=== PATIENT | male | born 1955 | race Caucasian/White ===

== ENCOUNTER 2018-07-02 09:38 | Emergency (ER) | payer OTHER ==
[2018-07-02 09:42] VITALS: BMI 33.5
[2018-07-02 09:43] VITALS: BP 127/79; PULSE 68; RESP 16; TEMP 98.2; O2SAT 96
[2018-07-02] MEDS ORDERED: Naproxen 500 MG TAB PO STA (10:12)
--- NOTE | 2018-07-02 10:18 | ED PDOC ---
Lower Extremity Pain/Injury Time Seen by Provider: 07/02/18 10:00 Chief Complaint (Nursing): Lower Extremity Problem/Injury Chief Complaint (Provider): foot pain History Per: Patient History/Exam Limitations: no limitations Onset/Duration Of Symptoms: Days Current Symptoms Are (Timing): Still Present Severity: Mild Pain Scale Rating Of: 5 Additional History Per: Patient Additional Complaint(s): 63 y/o male with no significant medical hx presents with right heel pain for a several weeks. He states pain is worse when applying weight to the heel and in the am upon rising. Pain improves as the day progresses. Additionally pt states he has been having pain to left lateral aspect of the left foot for one week. Pt states its most likely because he has been applying increase weight to left foot. He denies self medicating for pain. - Ankle/Foot Currently Unable To: Bear Weight (partial weight bearing to left foot ) - Risk Factors DVT Risk Factors: Pos: None Past Medical History Reviewed: Historical Data, Nursing Documentation, Vital Signs Vital Signs: Last Vital Signs Temp 98.2 F 07/02/18 09:42 Pulse 68 07/02/18 09:42 Resp 16 07/02/18 09:42 BP 127/79 07/02/18 09:42 Pulse Ox 96 07/02/18 09:42 - Medical History PMH: No Chronic Diseases - Surgical History Surgical History: No Surg Hx - Family History Family History: States: Unknown Family Hx - Social History Alcohol: None Drugs: Denies - Home Medications Home Medications: Ambulatory Orders Medication Instructions Recorded DiphenhydrAMINE [Benadryl] 25 mg PO Q4H PRN #30 cap 10/12/14 Famotidine [Pepcid] 20 mg PO DAILY #4 tab 10/12/14 Prednisone 50 mg PO DAILY #4 tab 10/12/14 Naproxen [Naprosyn Tab] 500 mg PO Q12H PRN #30 tab 07/02/18 - Allergies Allergies/Adverse Reactions: Allergies Allergy/AdvReac Type Severity Reaction Status Date / Time Penicillins AdvReac DIZZINESS Verified 07/02/18 10:21 Wells Criteria for PE - Wells Criteria for Pulmonary Embolism Clinical Signs and Symptoms of DVT: No P.E is #1 Diagnosis, or Equally Likely: No Heart Rate >100: No Immobilization at least 3 days;Surgery previous 4 weeks: No Previous, objectively diagnosed PE or DVT: No Hemoptysis: No Malignancy w/treatment within 6 months, or palliative: No Total Score: 0 Review of Systems ROS Statement: Except As Marked, All Systems Reviewed And Found Negative Constitutional: Negative for: Fever, Chills, Sweats, Weakness, Malaise, Weight loss Eyes: Negative for: Pain, Vision Change, Conjunctivae Inflammation, Eyelid Infl ammation, Redness, Other ENT: Negative for: Ear Pain, Ear Discharge, Nose Pain, Nose Congestion, Mouth Pain, Mouth Swelling, Throat Swelling Cardiovascular: Negative for: Chest Pain, Palpitations, Orthopnea Respiratory: Negative for: Shortness of Breath, SOB with Exertion Gastrointestinal: Negative for: Nausea, Vomiting, Abdominal Pain Musculoskeletal: Positive for: Foot Pain (right heel pain, left lateral foot pain) Neurological: Negative for: Weakness Physical Exam - Reviewed Nursing Documentation Reviewed: Yes Vital Signs Reviewed: Yes - Physical Exam Appears: Positive for: Well, Non-toxic, No Acute Distress Head Exam: Positive for: ATRAUMATIC, NORMAL INSPECTION, NORMOCEPHALIC Skin: Positive for: Normal Color, Warm, DRY Eye Exam: Positive for: EOMI, Normal appearance, PERRL ENT: Positive for: Normal ENT Inspection Neck: Positive for: Normal, Painless ROM Cardiovascular/Chest: Positive for: Regular Rate, Rhythm Respiratory: Positive for: CNT, Normal Breath Sounds Pulses-Dorsalis Pedis (L): 2+ Pulses-Dorsalis Pedis (R): 2+ Gastrointestinal/Abdominal: Positive for: Normal Exam, Soft Back: Positive for: Normal Inspection Extremity: Positive for: Normal ROM, Tenderness (tenderness to right heel, neg for brusing or swelling to left foot or right foot ), Capillary Refill (<2 sec cap refill bilat ). Negative for: Swelling Neurological/Psych: Positive for: Awake, Alert, Normal Tone, Oriented - ECG O2 Sat by Pulse Oximetry: 96 - Progress ED Course And Treament: NAPROXEN 500MG PO X1 DOSE IN ED. CLINICAL FINDINSG DICUSSED WITH PATIENT. PT EDUCATED ON EXERCISES THAT CAN BE DONE AT HOME TO ALLEVIATE HEEL PAIN. 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 IMPRESSION HEEL SPUR, RX GIVEN FOR NAPROXEN 500MG PO. PT GIVEN RETURN TO ED PRECAUTIONS. Disposition - Clinical Impression Clinical Impression: Heel spur - Patient ED Disposition Is Patient to be Admitted: No - Disposition Disposition: Routine/Home Disposition Time: 10:12 Condition: GOOD Prescriptions: Naproxen [Naprosyn Tab] 500 mg PO Q12H PRN #30 tab PRN Reason: Pain, Moderate (4-7) Instructions: Heel Spurs (DC) Print Language: KOREAN - KARLENE Present On Arrival: None
[2018-07-02] MEDS ORDERED: Naproxen 500 MG TAB PO ONE (10:21)
== END 2018-07-02 11:11 | disposition home or self-care (01) ==
LOC: H.ER 09:38
DX: M77.31 Calcaneal spur, right foot (principal)